=== PATIENT | male | born 1970 | race Caucasian/White ===

== ENCOUNTER 2020-06-05 10:28 | Emergency (ER) | payer SELFPAY ==
[2020-06-05 10:36] VITALS: BP 127/79; PULSE 98; RESP 18; TEMP 36.1; O2SAT 100
[2020-06-05 11:06] LABS: Basophils Absolute Auto 0.1 K/mm3 (0.0-0.1); Basophils Percent Auto 1.4 % (0.2-1.2); Eosinophils Absolute Auto 0.1 K/mm3 (0-0.3); Eosinophils Percent Auto 1.4 % (0-4.4); Hematocrit 53.4 % (42.0-52.0); Hemoglobin 18.2 g/dL (14.0-18.0); Immature Granulocyte Absolute 0.07 K/mm3 (0.00-0.031); Lymphocytes Absolute Auto 1.54 K/mm3 (0.9-3.2); Lymphocytes Percent Auto 22.2 % (18.3-44.2); Mean Corpuscular HGB Conc 34.1 g/dl (32-36); Mean Corpuscular Hemoglobin 31.5 pg (26-34); Mean Corpuscular Volume 92.4 fl (80-100); Mean Platelet Volume 9.7 fl (7.4-10.4); Monocytes Absolute Auto 0.4 K/mm3 (0.1-0.6); Monocytes Percent Auto 6.3 % (2.6-8.5); Neutrophils Absolute Auto 4.7 K/mm3 (1.3-6.7); Neutrophils Percent Auto 67.7 % (45.5-73.1); Platelet Count Result 266 k/mm3 (150-375); Red Blood Count 5.78 M/mm3 (4.6-6.20); Red Cell Distribution Width 13.4 % (11.5-14.5)
[2020-06-05 11:12] LABS: Add Urine Microscopic? NO; Appearance Urine Clear (Clear); Bilirubin Urine Negative (Negative); Blood Urine Negative (Negative); Color Urine Yellow (Yellow); Glucose Urine UA Negative (Negative); Ketones Urine Negative (Negative); Leukocyte Esterase Ur Negative LEU/UL (Negative); Nitrate Urine Negative (Negative); Protein Urine Negative (Negative); Specific Grav Ur 1.014 (1.001-1.035); Urobilinogen Urine Negative mg/dL (<2.0)
[2020-06-05 11:14] LABS: Lipase 247 U/L (23-300)
[2020-06-05 11:20] LABS: Alanine Aminotransferase 36 U/L (4-50); Albumin Level 4.7 g/dL (3.5-5.1); Alkaline Phosphatase 89 U/L (38-126); Anion Gap 12 mmol/L (8-16); Aspartate Amino Transferase 34 U/L (17-59); Bilirubin,Total 0.6 mg/dL (0.2-1.3); Blood Urea Nitrogen 16 mg/dL (9-20); Calcium 9.9 mg/dL (8.4-10.2); Carbon Dioxide 28 mmol/L (22-30); Chloride 103 mmol/L (98-107); Estimated CRCL calculation 93 ml/min; Estimated Glomerular Filt Rate > 60; Glucose 96 mg/dL (75-110); Potassium 4.4 mmol/L (3.4-5.0); Sodium 143 mmol/L (137-145)
--- NOTE | 2020-06-05 11:57 | ED.ABDPAIN ---
HPI - Abdominal Pain General Chief Complaint: Abdominal Pain Stated Complaint: GI problems Time Seen by Provider: 06/05/20 10:39 Source: patient Mode of arrival: ambulatory Limitations: no limitations History of Present Illness HPI narrative: Patient presents 1 evaluation of his right inguinal hernia that has been present since 2017 and has been easily reducible. Patient states he did follow-up with a surgeon in [place] and was told that he can have surgery performed but he backed out. Patient also wants his penis evaluated as he states at times in the morning he has erection but it is not as full of any erection as he typically does. Patient states earlier this year in September he had small blood clots passed through his urethra but he has not had that in many months. Patient states that he was evaluated by urology and was told to follow-up with his primary care but he does not recall what they said. Patient does not have any difficulty urinating, blood clots in his urine, fever, chills, nausea, vomiting, diarrhea or any other acute symptoms at this time. Related Data Home Medications Medication Instructions Recorded Confirmed No Home Medications 06/05/20 06/05/20 Allergies Allergy/AdvReac Type Severity Reaction Status Date / Time No Known Allergies Allergy Verified 06/05/20 10:41 Review of Systems Review of Systems: Narrative: CONSTITUTIONAL: Denies fever, chills, or sweats. EYES: Denies visual changes, redness, or discharge. ENT: Denies rhinorrhea, congestion, sore throat, or otalgia. CARDIOVASCULAR: Denies chest pain, palpitations, or edema. RESPIRATORY: Denies cough or dyspnea. GASTROINTESTINAL: Denies abdominal pain, nausea, vomiting, or diarrhea. GENITOURINARY: Reports right inguinal hernia and erection concerns denies dysuria or hematuria. SKIN: Denies rash or itching. MUSCULOSKELETAL: Denies back pain, myalgia, or joint pain NEUROLOGIC: Denies headache, numbness, dizziness, or weakness. PSYCHIATRIC: Denies anxiety or depression. [facility]LY [facility] Social History Social History Gender identity (if verbalized by the patient): Male Exam Narrative: Exam Narrative: GENERAL: Patient appears disheveled and unkempt in appearance but not toxic or diaphoretic in appearance. HEAD: Normocephalic, atraumatic. EYES: PERRLA and EOMI. ENT: Nares clear, no rhinorrhea or epistaxis. Mucous membranes moist. Oropharynx without tonsillar hypertrophy exudate or other lesions. Bilateral TMs pearly carney nonbulging NECK: Supple. No adenopathy or masses. No vertebral tenderness or loss of ROM. CHEST: Clear to auscultation. No respiratory distress. No wheezes rales or rhonchi HEART: Regular rate and rhythm. ABDOMEN: Soft, nontender, nondistended, normal active bowel sounds. No bruises noted. : There is no strangulated hernia noted at the right groin. The area is soft and there is no protruding bowel when the patient is laying, very minimal with standing. Patient's penis appears normal. There is no signs of lesions, ulceration or ischemia. EXTREMITIES: No acute changes in ROM. No edema. SKIN: Warm, dry, no rash. NEURO: No focal deficits. Alert and oriented x3. PSYCH: Normal mood and affect. Course Vital Signs Vital signs: Vital Signs Temperature 96.9 F L 06/05/20 10:36 Pulse Rate 98 06/05/20 10:36 Respiratory Rate 18 06/05/20 10:36 Blood Pressure 127/79 06/05/20 10:36 Pulse Oximetry 100 06/05/20 10:36 Temperature 96.9 F L 06/05/20 10:36 Pulse Rate 98 06/05/20 10:36 Respiratory Rate 18 06/05/20 10:36 Blood Pressure 127/79 06/05/20 10:36 Pulse Oximetry 100 06/05/20 10:36 MDM - Abdominal Pain MDM Narrative Medical decision making narrative: Patient not have any signs of acute hernia strangulation or ischemia or acute penile emergency/injury today. I have instructed the patient that he will follow-up with general surgery for hernia reevaluation and recommendations as well as follo
[2020-06-05 12:27] VITALS: RESP 16
== END 2020-06-05 12:29 | disposition home or self-care (01) ==
PROVIDERS: Physician Assistant; Emergency Provider Emergency Medicine
DX: K40.91 Unilateral inguinal hernia, without obstruction or gangrene, recurrent (principal); Q55.69 Other congenital malformation of penis
CPT/HCPCS: 36415; 80053; 81003; 83690; 85025; 99283

== ENCOUNTER 2022-08-13 03:03 | Emergency (ER) | payer SELFPAY ==
[2022-08-13] VITALS (17 sets, daily range): BP systolic 113–134; BP diastolic 64–82; PULSE 60–84; RESP 13–34; TEMP 36.6; O2SAT 94–100
--- NOTE | ~2022-08-13 | XR_ITS ---
Portable chest x-ray Comparison: None Clinical History: Shortness of breath Findings: Lungs are clear, without focal consolidation or pleural effusion. Cardiomediastinal silho uette is unremarkable. Bones and soft tissues are unremarkable. Impression: Clear lungs. Reviewed, dictated and finalized at location . [employer] Impression: Clear lungs.
--- NOTE | ~2022-08-13 | CT_ITS ---
Non-contrast CT scan of the Abdomen and Pelvis Clinical indication: Abdominal pain Technique: 5 mm axial scans were obtained through the abdomen and pelvis without intravenous or oral contrast. Dose reduction technique was used on this scan by utilizing automated exposure control and iterative reconstruction technique. The dose-length product (DLP) was 639.31 mGy-cm. COMPARISON: Chest CT performed earlier on 08/13/2022. Findings: Images through the lung bases reveal no abnormalities. There is no evidence of renal or ureteral calculi. The kidneys and the ureters are nondilated. There is a 15.6 x 11.4 cm left hepatic lobe mass with extensive nodular peripheral enhancement. There is a central coarse calcification within the lesion. Gallstones are present. The spleen, pancreas, a nd adrenals appear normal. There is no aortic aneurysm. There is no evidence of bowel obstruction. There are mild inflammatory stranding in the mesentery in the right mid abdomen and right lower quadrant. Appendix is normal, and the inflammatory changes away from the appendix. Images through the pelvis were performed. There is no evidence of ascites or lymphadenopathy. Urinary bladder unremarkable. Prostate gland enlarged. Small fat-containing right inguinal hernia noted. Impression: Mild inflammatory changes in the right mid abdomen/right lower quadrant mesentery, uncertain etiology . Appendix is normal, and away from any inflammatory change. Consider panniculitis, or resolving smal l bowel enteritis, or possibly omental infarct. 15.6 x 1.4 cm left hepatic lobe mass, most consistent with hemangioma. Cholelithiasis. Enlarged prostate gland. Reviewed, dictated and finalized at [facility]. 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 Appendix is normal, and away from any inflammatory anthony ge. Consider panniculitis, or resolving small bowel enteritis, or possibly omen alexa infarct. 15.6 x 1.4 cm left hepatic lobe mass, most consistent with hemangioma. Cholelithiasis. Enlarged prostate gland.
--- NOTE | ~2022-08-13 | CT_ITS ---
Clinical Indication: Shortness of breath, prior embolectomy CT Angiogram of the Chest with Contrast: Technique: Contiguous sections were acquired throughout the chest after intravenous administration of 100 cc of Omnipaque 350. Coronal maximum intensity projection 3-D reconstructions were created by nuria noriega technologist. Dose reduction technique was used on this scan by utilizing automated exposure contr ol and iterative reconstruction technique. The dose-length product (DLP) was 839.43 mGy-cm. Findings: Small calcified left hilar lymph nodes are present. There is eccentric filling defect in the left low er lobar pulmonary artery region, suggestive of chronic PE. Possible small chronic pulmonary emboli i n segmental branches in the left upper lobe and right lower lobe. There is no evidence of aortic diss ection or aneurysm. There is no evidence of pleural or pericardial effusion. The lungs are clear. No pulmonary nodules or infiltrates are noted. Images through the upper abdomen reveal probable large predominantly hypodense left hepatic lobe mass measuring approximately 15 cm in diameter, with possible focal peripheral enhancement.. Impression: Filling defects in the left lower lobar pulmonary, and bilateral lower lower segmental branches, and possibly left upper lobe segmental branch. Appearance is somewhat more suggestive of chronic PE rathe r than acute PE, though the latter is not excluded. Correlate clinically. Comparison with prior exams would be useful. Clear lungs. 15 cm left hepatic lobe mass, indeterminate, possibly hemangioma. Follow-up pre and postcontrast MR r ecommended. Reviewed, dictated and finalized at [facility]. LE COLLECTOR Impression: Filling defects in the left lower lobar pulmonary, and bilateral lower lower se gmental branches, and possibly left upper lobe segmental branch. Appearance is somewhat more suggestive of chronic PE rather than acute PE, though the latter is not excluded. Correlate clinically. Comparison with prior exams would be use ful. Clear lungs. 15 cm left hepatic lobe mass, indeterminate, possibly hemangioma. Follow-up pre and postcontrast MR recommended.
--- NOTE | 2022-08-13 03:16 | ECG_ITS ---
Measurements Intervals [place] Rate: 69 P: 28 WA: 141 QRS: 25 QRSD: 86 T: 4 QT: 428 QTc: 459 Interpretive Statements SINUS RHYTHM EARLY PRECORDIAL R/S TRANSITION T WAVE ABNORMALITY IN INFERIOR LEADS- CONSIDER ISCHEMIA BASELINE ARTIFACT- I, II, III, AVR, AVL, AVF, V1-V6 ABNORMAL ECG NO PREVIOUS ECG AVAILABLE FOR COMPARISON Electronically Signed On 08-13-2022 8:01:20 DAIRY HELPER by Mike Tay D.O.
--- NOTE | 2022-08-13 03:24 | ED.GENADULT ---
HPI - General Adult General Chief complaint: Chest Pain Stated complaint: chest pain Time Seen by Provider: 08/13/22 03:17 History of Present Illness HPI narrative: 52-year-old male with a history of CVA and DVT with recent embolectomy at [place] presented to the emergency department for evaluation of worsening shortness of breath. Patient states he was diagnosed with a PE on the had embolectomy on the . Patient has been taking 80 mg of Lovenox. Patient reports that he had been asymptomatic until approximately 2 hours prior to arrival. Patient reports worsening shortness of breath. Related Data Allergies Allergy/AdvReac Type Severity Reaction Status Date / Time No Known Allergies Allergy Verified 08/13/22 03:44 Review of Systems Review of Systems: CONSTITUTIONAL: Denies fever, chills, or sweats. EYES: Denies visual changes, redness, or discharge. ENT: Denies rhinorrhea, congestion, sore throat, or otalgia. CARDIOVASCULAR: See HPI RESPIRATORY: See HPI GASTROINTESTINAL: Denies abdominal pain, nausea, vomiting, or diarrhea. GENITOURINARY: Denies dysuria or hematuria. SKIN: Denies rash or itching. MUSCULOSKELETAL: Denies back pain, joint pain, or myalgia. NEUROLOGIC: Denies headache, numbness, or weakness. PSYCHIATRIC: Anxiety PMFSH Past Medical History Medical History GERD (gastroesophageal reflux disease) Social History Social History Smoking status: Current some day smoker Tobacco type: cigarettes Alcohol intake: unknown Substance use: unknown Gender identity (if verbalized by the patient): Male Exam Narrative: APPEARANCE: Well appearing, no pain, no distress, well-nourished. HEAD: normocephalic, atraumatic. EYES: PERRLA/EOMI, conjunctivae clear. NOSE: Normal no drainage EARS:TMS clear with good light reflex. THROAT: Pharynx clear, no exudate. NECK: Supple. No adenopathy, no masses. RESPIRATORY: Airway patent, respirations nonlabored. Clear to auscultation bilaterally, no rales, rhonchi, wheezing. CARDIOVASCULAR: Regular rate and rhythm without murmurs rubs or gallops. ABDOMINAL: Soft, nontender, nondistended, normal bowel sounds MUSCULOSKELETAL: Moves all extremities. Strength/ROM intact, No edema, No calf tenderness. NEURO: Alert. Cranial nerves II through XII intact. Grossly intact SKIN: Warm, dry. Normal Color Course Course Emergency Course: During the patient stay in the emergency department he has had no tachycardia and has not been hypoxic. Patient is normotensive. Patient was very anxious upon arrival to the emergency department. Patient was also having some nausea and vomiting and states that he has a anxiety response to nausea and vomiting. Patient did improved with treatment with anxiety and with nausea meds. CT scan does show he has evidence of PE but no persistent saddle embolism. Patient is currently still on Lovenox. Patient does have follow-up scheduled with his primary care physicians. Vital Signs Vital signs: Vital Signs Pulse Rate 70 08/13/22 03:10 Respiratory Rate 24 H 08/13/22 03:10 Blood Pressure 134/77 08/13/22 03:10 Pulse Oximetry 99 08/13/22 03:10 Temperature 97.8 F 08/13/22 03:41 Pulse Rate 69 08/13/22 05:16 Respiratory Rate 22 H 08/13/22 05:16 Blood Pressure 119/77 08/13/22 05:15 Pulse Oximetry 94 08/13/22 05:16 Oxygen Delivery Room Air 08/13/22 03:45 Medical Decision Making Vital Signs Vital Signs: Vital Signs Pulse Rate 70 08/13/22 03:10 Respiratory Rate 24 H 08/13/22 03:10 Blood Pressure 134/77 08/13/22 03:10 Pulse Oximetry 99 08/13/22 03:10 Temperature 97.8 F 08/13/22 03:41 Pulse Rate 69 08/13/22 05:16 Respiratory Rate 22 H 08/13/22 05:16 Blood Pressure 119/77 08/13/22 05:15 Pulse Oximetry 94 08/13/22 05:16 Oxygen Delivery Room Air 08/13/22 03:45 Lab Data
[2022-08-13] MEDS: ONDANSETRON INJ 4 MG/2 ML VIAL IV PUSH (03:27)
[2022-08-13] MEDS: LORazepam INJ (*CRX) 2 MG/ML VIAL 0.5 MG IV PUSH (03:35)
[2022-08-13 04:02] LABS: Basophils Absolute Auto 0.1 K/mm3 (0.0-0.1); Eosinophils Absolute Auto 0.2 K/mm3 (0-0.3); Eosinophils Percent Auto 1.3 % (0-4.4); Hematocrit 47.2 % (42.0-52.0); Hemoglobin 14.7 g/dL (14.0-18.0); Immature Granulocyte Absolute 0.12 K/mm3 (0.00-0.031); Immature Granulocyte Percent A 0.9 % (0-0.5); Lymphocytes Absolute Auto 1.57 K/mm3 (0.9-3.2); Lymphocytes Percent Auto 11.3 % (18.3-44.2); Mean Corpuscular HGB Conc 31.1 g/dl (32-36); Mean Corpuscular Hemoglobin 30.8 pg (26-34); Mean Corpuscular Volume 98.7 fl (80-100); Mean Platelet Volume 9.8 fl (7.4-10.4); Monocytes Absolute Auto 0.6 K/mm3 (0.1-0.6); Neutrophils Absolute Auto 11.3 K/mm3 (1.3-6.7); Neutrophils Percent Auto 81.5 % (45.5-73.1); Platelet Count Result 326 k/mm3 (150-375); Red Blood Count 4.78 M/mm3 (4.6-6.20); Red Cell Distribution Width 14.8 % (11.5-14.5); White Blood Count 13.9 K/mm3 (4.5-10.0)
[2022-08-13] MEDS: METOCLOPRAMIDE HCL INJ 10 MG/2 ML VIAL IV PUSH (04:02)
[2022-08-13 04:13] LABS: Prothrombin Time 13.1 Seconds (11.1-14.7)
[2022-08-13 04:18] LABS: Alanine Aminotransferase 44 U/L (6-50); Albumin Level 4.5 g/dL (3.5-5.1); Alkaline Phosphatase 112 U/L (38-126); Anion Gap 15 mmol/L (8-16); Aspartate Amino Transferase 36 U/L (17-59); Bilirubin,Total 0.9 mg/dL (0.2-1.3); Blood Urea Nitrogen 15 mg/dL (9-20); Calcium 8.9 mg/dL (8.4-10.2); Carbon Dioxide 15 mmol/L (22-30); Chloride 111 mmol/L (98-107); Estimated CRCL calculation 101 ml/min; Estimated Glomerular Filt Rate > 60; Glucose 132 mg/dL (65-110); Lipase 479 U/L (23-300); Potassium 3.9 mmol/L (3.4-5.0); Sodium 141 mmol/L (137-145)
[2022-08-13 04:24] LABS: Troponin I < 0.012 ng/mL (0.000-0.034)
[2022-08-13 04:27] LABS: Partial Thromboplastin Time 30.9 SECONDS (22.3-36.8)
[2022-08-13] MEDS: HYDROmorphone HCL INJ (*CRX) 1 MG/ML SYR IV PUSH (04:30)
[2022-08-13 04:51] LABS: INR 1.1; Prothrombin Time 13.6 Seconds (11.1-14.7)
[2022-08-13 04:52] LABS: Partial Thromboplastin Time 31.6 SECONDS (22.3-36.8)
== END 2022-08-13 05:31 | disposition home or self-care (01) ==
PROVIDERS: Emergency Provider Emergency Medicine
DX: F41.9 Anxiety disorder, unspecified (principal); R11.0 Nausea; R06.00 Dyspnea, unspecified; I26.99 Other pulmonary embolism without acute cor pulmonale; K21.9 Gastro-esophageal reflux disease without esophagitis; Z86.718 Personal history of other venous thrombosis and embolism; Z86.73 Personal history of transient ischemic attack (TIA), and cerebral infarction without residual deficits; R94.31 Abnormal electrocardiogram [ECG] [EKG]; R16.0 Hepatomegaly, not elsewhere classified; K80.20 Calculus of gallbladder without cholecystitis without obstruction; N40.0 Benign prostatic hyperplasia without lower urinary tract symptoms; F17.210 Nicotine dependence, cigarettes, uncomplicated; R93.5 Abnormal findings on diagnostic imaging of other abdominal regions, including retroperitoneum; R91.8 Other nonspecific abnormal finding of lung field; Z79.01 Long term (current) use of anticoagulants
CPT/HCPCS: 36415; 71045; 71275; 74176; 80053; 83690; 84484; 85025; 85610; 85730; 86850; 86900; 86901; 93005; 96374; 96375; 99284; J1170; J2060; J2405; J2765; Q9967